=== PATIENT | male | born 2005 | race Caucasian/White ===

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

== ENCOUNTER → 2025-04-02 10:30 | Outpatient (BNVA) | payer OTHER, SELFPAY | PROVIDERS: PCP Family Medicine; Visit Provider Emergency Medicine | DX: J02.9 Acute pharyngitis, unspecified (principal) | CPT/HCPCS: 87071; 87880 ==

== ENCOUNTER 2025-04-18 14:04 | Outpatient (CLI) | payer OTHER, SELFPAY | END 2025-04-18 14:05 | disposition home or self-care (01) | LOC: SLEEP 14:12 | PROVIDERS: PCP Family Medicine; Referring Provider Family Medicine; Visit Provider Internal Medicine Pulmonary Disease | DX: G47.19 Other hypersomnia (principal) | CPT/HCPCS: G0399 ==